=== PATIENT | male | born 1995 | race Caucasian/White ===

== ENCOUNTER 2025-08-23 23:29 | Emergency (ER) | payer BC ==
[~2025-08-23] VITALS: Ht 177.8 cm; Wt 74.8 kg
[2025-08-24 00:25] LABS: PLATELET COUNT (AUTO) 194 K/uL (150-450); RED BLOOD CELL COUNT(AUTO) 5.29 MIL/uL (4.5-6.0); RED CELL DISTRIBUTION WIDTH 12.8 % (11.5-15.0); WHITE BLOOD COUNT (AUTO) 7.9 K/uL (4.3-11.0)
[2025-08-24] MEDS ORDERED: dexaMETHasone SOD PHOSPHATE 1 ML ONE (00:30)
[2025-08-24 00:34] LABS: CALCIUM, SERUM 8.6 mg/dL (8.5-10.1); CREATININE 0.8 mg/dL (0.6-1.3); SODIUM SERUM 140 mmol/L (136-145); UREA NITROGEN, BLOOD 15 mg/dL (7-18)
[2025-08-24] MEDS ORDERED: VALA100026 PO (00:49)
[2025-08-24] MEDS: dexaMETHasone SOD PHOSPHATE 10 MG/ML VIAL IV ONE (00:49)
[2025-08-24] MEDS ORDERED: POLY15DR31 RIGHTEYE (00:49)
[2025-08-24] MEDS ORDERED: PRED50TA PO (00:49)
[2025-08-24] MEDS ORDERED: VALACYCLOVIR HCL 500 MG TABLET ONE (00:55)
[2025-08-24] MEDS: VALACYCLOVIR HCL 500 MG TABLET PO ONE (00:58)
[2025-08-24 01:10] LABS: ALCOHOL, BLOOD < 3 mg/dL (0-10)
[2025-08-24 01:50] VITALS: BP 134/70; TEMP 98.4; O2SAT 99
== END 2025-08-24 01:53 | disposition home or self-care (01) ==
LOC: ER 23:32
DX: G51.0 Bell's palsy (principal); R68.84 Jaw pain; R73.9 Hyperglycemia, unspecified; Z60.2 Problems related to living alone
CPT/HCPCS: 99285; 96374; 93005; 71045; 70450; 85025; 80048; 85730; 36415; 82962; 80320; J1100; G0480